=== PATIENT | female | born 1990 | race Caucasian/White ===

== ENCOUNTER 2016-06-18 21:49 | Emergency (ER) | payer SELFPAY ==
[~2016-06-18] VITALS: Ht 162.6 cm; Wt 70.3 kg
[2016-06-18] MEDS ORDERED: AZITHROMYCIN 250 MG TABLET PO ONE (22:30)
[2016-06-18] MEDS ORDERED: AZITHROMYCIN 250 MG TABLET ONE (22:44)
[2016-06-18 23:16] VITALS: BP 118/71
--- NOTE | 2016-06-18 23:16 | NUR ---
Patient discharged to home in stable conditon. Written and verbal after care instructions given. Patient verbalizes understanding of instructions. Walked out of ER with steady gait
== END 2016-06-18 23:17 | disposition home or self-care (01) ==
LOC: ER 22:01
DX: J02.9 Acute pharyngitis, unspecified (principal)
CPT/HCPCS: 99283; A4663; Q0144